=== PATIENT | male | born 1945 | race Caucasian/White ===

== ENCOUNTER → 2017-08-06 | Outpatient (CLI) | payer OTHER | LOC: FIMAGING 10:04 | PROVIDERS: ATTEND Physician Assistant | DX: M53.2X7 Spinal instabilities, lumbosacral region (principal) ==

== ENCOUNTER → 2017-09-14 | Outpatient (CLI) | payer OTHER | LOC: FIMAGING 16:38 | PROVIDERS: ATTEND Internal Medicine | DX: M79.9 Soft tissue disorder, unspecified (principal); S92.514D Nondisplaced fracture of proximal phalanx of right lesser toe(s), subsequent encounter for fracture with routine healing; S92.354D Nondisplaced fracture of fifth metatarsal bone, right foot, subsequent encounter for fracture with routine healing ==

== ENCOUNTER → 2018-03-10 | Outpatient (CLI) | payer OTHER | LOC: BHFA 13:30 | PROVIDERS: ATTEND Internal Medicine Cardiovascular Disease | DX: R07.9 Chest pain, unspecified (principal) | CPT/HCPCS: 78452; 93017; A9500 ==

== ENCOUNTER 2018-03-15 06:36 | Day surgery (SDC) | payer OTHER ==
[2018-03-15] MEDS ORDERED: ASPIRIN EC 325 MG TAB PO ONE (06:37)
[2018-03-15] MEDS ORDERED: NS 1,000 ML IV ONE (06:37)
[2018-03-15] MEDS ORDERED: FAMOTIDINE 20 MG TAB PO ONE (06:37)
[2018-03-15] MEDS ORDERED: diphenhydrAMINE 25 MG CAP PO ONE ×2 (06:37→12:34)
[2018-03-15] MEDS ORDERED: DIAZEPAM 5 MG TAB PO ONE (06:37)
[2018-03-15] MEDS ORDERED: NS 1,000 ML IV SCH (06:45)
[2018-03-15 07:22] LABS: PLATELET COUNT 196 10^3/uL (150-400)
[2018-03-15 07:30] LABS: INR 1.06 (0.83-1.16)
[2018-03-15] MEDS ORDERED: fentaNYL 100 MCG/2 ML INJ ONE (12:26)
[2018-03-15] MEDS ORDERED: LIDOCAINE 1% 300 MG/30 ML SDV ONE (12:26)
[2018-03-15] MEDS ORDERED: MIDAZOLAM 2 MG/2 ML VIAL ONE (12:27)
[2018-03-15] MEDS ORDERED: IOPAMIDOL (ISOVUE-370) 150 ML BTL IV ONE (12:27)
[2018-03-15] MEDS ORDERED: FAMOTIDINE 20 MG TAB ONE (12:34)
[2018-03-15] MEDS ORDERED: DIAZEPAM 5 MG TAB ONE (12:35)
[2018-03-15] MEDS ORDERED: NITROGLYCERIN 0.4 MG BTL SL PRN (13:28)
[2018-03-15] MEDS ORDERED: ATROPINE SULFATE 1 MG/10 ML SYR IVP PRN (13:28)
[2018-03-15] MEDS ORDERED: HYDROCODONE/APAP 5/325 TAB PO PRN (13:28)
[2018-03-15] MEDS ORDERED: ONDANSETRON 4 MG/2 ML VIAL IVP PRN (13:28)
[2018-03-15] MEDS ORDERED: OXYCODONE/APAP 5/325 TAB PO PRN (13:28)
--- NOTE | 2018-03-15 15:33 | PDHPUP ---
History & Physical Update H&P update statement: This history and physical update is based on an assessment of the patient which was completed after admission or registration (within 24 hours), but prior to the surgery/procedure. H&P update: H&P reviewed & patient examined, no change in patient's condition since H&P completed
--- NOTE | 2018-03-15 15:33 | PDPROPOC ---
Sedation Plan of Care Sedation Plan of Care: mental status noted, patient educated of risks, benefits , alternatives, patient can tolerate sedation ASA Classification: ASA 2 Planned drugs: fentanyl, midazolam Mallampati Score: Class 2 Mallampati Reference Image: Patient passed 3-3-2 rule?: Yes
--- NOTE | 2018-03-16 00:47 | CPIP ---
DATE OF PROCEDURE: 03/15/2018 INDICATION FOR PROCEDURE: Angina, positive stress test. PROCEDURE: 1. Nonselective right groin sheathogram. 2. Bilateral selective coronary angiography. 3. Left heart catheterization. 4. Left angiogram. HISTORY: Briefly, this is a 72-year-old male with history of worsening chest pains and symptoms susp icious for underlying coronary disease. Patient underwent stress testing which showed significant ST depressions during exercise as well as inferior defect on stress testing. The patient also had ches t pain during his treadmill testing. Given these findings, the patient consented for left heart cath eterization. 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 DESCRIPTION OF PROCEDURE: After informed consent was obtained, the patient was brought to [facility] cleaning laborer where the patient's right groin was prepped and draped in sterile fashion. U sing lidocaine, a short 6-Palestinian sheath right femoral artery verified angiographically. The 6-Palestinian sheath, a JL4 catheter was advanced to the left coronary artery. Images of the left coronary artery revealed normal left main, small marginal 1 coming off proximally the circumflex artery. There was a much larger marginal 2 artery, which had a tubular 80% to 90% stenosis in its proximal aspect. The re was another area of at least 40% stenosis just distal to this area. There was a marginal 3 artery , which had diffuse 20-30% disease in it. The LAD was a long vessel which wrapped around the apex. The LAD had diffuse 30% disease throughout its course, although distally it appeared to be widely pat ent. There was a small diagonal artery coming off the midbody of the LAD, which had diffuse 20% to 3 0% disease. After images were obtained the JL4 catheter was removed. The JR4 catheter was advanced to the right coronary artery. Images of the right coronary artery revealed normal ostial RCA. The p blanca RCA had what appeared to be 30% disease. This was followed by another longer tubular segment of 50% disease. The distal RP LS had 20% to 30% disease. The RP DA was a thin vessel, but did not have any significant disease. I resumed and obtained the JR4 catheter removed. The pigtail catheter was advanced into the left ventricle. LVEDP is 15 mmHg. Left ventricle in the ZU[place]IGA position showed EF of 65% with no wall motion abnormalities. There was no pull-back gradient between the LV and the aorta . Pigtail catheter was removed over the guidewire. Right groin was closed 6-Palestinian Angio-Seal. The patient tolerated the procedure well with no complications. IMPRESSION: 1. Mild noncritical 30% disease throughout the LAD. 2. 80 to 90% stenosis in the marginal 1 artery which appeared to be a medium to large vessel. 3. 40 to 50% tubular disease in the proximal mid RCA. 4. Normal ejection fraction. At this time, the patient has elected for medical management only. I discussed with the patient in d epth prior to the procedure about potential issues with stenting versus CABG versus medical therapy. He has elected the medical therapy is what he would like to proceed with unless symptoms dictate or prove intractable. We will discharge the patient home this morning with his home medications which i nclude statin, beta diana, and we will add Imdur 30 mg p.o. daily for increasing antianginal therap y. He cannot take aspirin secondary to the aforementioned reasons by micro perforation bleeds. /[id number]/MODL
--- NOTE | 2018-03-16 12:27 | CPEKG ---
Test Reason : OPEN Blood Pressure : / mmHG Vent. Rate : 090 BPM Atrial Rate : 090 BPM P-R Int : 172 ms QRS Dur : 104 ms QT Int : 355 ms P-R-T Axes : 052 000 042 degrees QTc Int : 435 ms Sinus rhythm Probable left atrial enlargement Minimal ST depression, anterolateral leads Confirmed by Gamaliel Olivia ([id number]) on 03/16/2018 12:26:51 PM Referred By: Confirmed By:Gamaliel Olivia
== END 2018-03-15 17:00 | disposition home or self-care (01) ==
LOC: FCATH 06:36
PROVIDERS: ATTEND Internal Medicine Cardiovascular Disease
DX: I25.119 Atherosclerotic heart disease of native coronary artery with unspecified angina pectoris (principal)
CPT/HCPCS: C1760; J1644; J2250; J3010; Q9967

== ENCOUNTER 2018-03-21 14:32 | Emergency (ER) | payer OTHER ==
--- NOTE | 2018-03-21 15:02 | EDPHY ---
General - History Smoking Status: Former smoker Time Seen by Provider: 03/21/18 14:48 Narrative: CHIEF COMPLAINT: arm is black and blue HISTORY OF PRESENT ILLNESS: Patient presents by private vehicle with complaints of left arm turning black and blue with some numbness in it. He states that this happened approximately 1 hr ago. He noticed some prominence of his veins in his left arm with some reported bruising of the mid forearm down to the wrist. He felt "some numbness " in his left forearm that he describes as "like it fell asleep." No trauma or injury. No chest pain or shortness of breath. No lower extremity erythema edema or pain. He does report a right heart catheterization approximately 1 week ago from the right groin approach. IV was in the left forearm. He has no anticoagulation use. No other associated complaints or modifying factors REVIEW OF SYSTEMS: 10 systems were reviewed and negative with the exception of the elements mentioned in the history of present illness. PCP: Dr. Billie Hargrove SPECIALISTS: Cardiology, [facility] Rheumatology, Dr. Medina PAST MEDICAL HISTORY: Coronary artery disease, hypertension, dyslipidemia, psoriatic arthritis, esophageal varices, upper GI bleed, peptic ulcer disease PAST SURGICAL HISTORY: Right heart catheterization 8 days ago, right groin approach SOCIAL HISTORY: Never smoker. Lives independently with his spouse. FAMILY HISTORY: Noncontributory EXAMINATION: Vitals: Triage VS reviewed General Appearance: Alert, no distress. Well appearing. Head: normocephalic, atraumatic Eyes: Pupils equal and round, no conjunctival pallor or injection ENT, Mouth: Mucous membranes moist Neck: Normal inspection, supple, non-tender. No JVD Respiratory: Lungs are clear to auscultation Cardiovascular: Regular rate and rhythm. No murmur. Radial pulses are symmetric at 2+. There is brisk cap refill in all fingers left hand. Good signs of perfusion Neurological: A&O, nonfocal, normal gait. Light sensory symmetric in upper extremities. Excellent industrial technologist strength symmetrically. Skin: Warm and dry, no rash. No erythema of the left upper extremity. Extremities: Nontender, no pedal edema. Minimal left upper extremity nonpitting edema to the forearm. Psychiatric: Mood and affect normal DIFFERENTIAL DIAGNOSES: Including but not limited to DVT, thrombophlebitis, varicosity, arterial occlusion, hematoma MDM: 2:50 p.m. Left upper extremity apparent varicosity versus suspected thrombophlebitis with reports of ecchymosis, mild pain and tingling earlier. Excellent signs of perfusion with no evidence of arterial occlusion. Symptoms are improving since he 1st noticed this. He has no chest pain or shortness of breath. No complaints of lower extremities. His vital signs are within normal limits with tachycardia at time of arrival, within normal rate during my examination. He does not meet SIRS criteria. He is not ill-appearing. I have ordered ultrasound left upper extremity with basic laboratory studies as well. 3:30 p.m. Laboratory studies unremarkable with a chronic elevation of his creatinine that is unchanged. 4:00 p.m. Notified by radiologist Dr. Lee. Ultrasound left upper extremities negative for any evidence of thrombus. Patient re-evaluated. He is asymptomatic at this time aside from a very small area, 1 cm x 1 cm, ecchymosis at the base of the left thumb on the radial side. No pain. No numbness or tingling. He still has excellent signs of perfusion with a 2+ left radial pulse and brisk cap refill in the left hand. No cyanosis or pallor. We discussed discharge home with follow-up with his physicians. He has an appointment tomorrow with his underwater roboticist at 1:30 a.m.. We discussed ED precautions for any return of symptoms, redness, warmth, swelling, pain, chest pain, shortness of breath, numbness or weakness. Both he and his spouse are comfortable this plan. Discharged home stable condition. SUPERVISION: Patient was evaluated and examined in conjunction with my secondary supervising physician as documented. We have both examined the patient. CONSULTATION: None (Michele Infante) Medical Decision Making: PHYSICIAN DOCUMENTATION: The patient was evaluated and managed by the Physician Vocational Evaluator and myself. I have reviewed the chart and agree with the findings and plan of care as documented. In addition, I examined the patient myself at 1615. History confirmed as discoloration of the left arm which is now mostly resolved. Physical findings as follows: Normal left radial pulse and normal motor and sensory in the left hand. He has some prominent superficial veins, but no ecchymosis. Not hot or warm to the touch, compartments are soft. Ultrasound shows no DVT. Does not appear that he has an acute medical or surgical emergent condition in that arm. Think it is safe to let him go home, patient is in agreement. Doubt arterial occlusion or venous occlusion, infection, surgical spinal or nerve root problem. I am the secondary supervising physician. (Lenny eLdesma) - Diagnostics Imaging Results: Imaging Impressions Extremity Venous Study 03/21/18 15:02 Impression: No evidence of vein thrombosis in the left arm. Results called and discussed with Michele CORDOVA on 03/21/2018 at 16:02. - Objective Vital Signs: Initial Vital Signs Temperature (C) 36.7 C 03/21/18 14:36 Heart Rate 107 H 03/21/18 14:36 Respiratory Rate 20 03/21/18 14:36 Blood Pressure 161/96 H 03/21/18 14:36 O2 Sat (%) 94 03/21/18 14:36 O2 Delivery Mode Room Air Allergies/Adverse Reactions: No Allergies [NKDA] Allergy (Verified 03/21/18 14:40) Home Medications: Medication Instructions Recorded Ferrous Sulfate [Ferrous Sulf 325 1 tab PO BID 01/11/13 MG (*)] Leflunomide [Arava 20 mg (*)] 20 mg PO DAILY 01/11/13 Losartan/Hctz 50/12.5 [Hyzaar 1 tab PO DAILY 01/11/13 50/12.5MG (*)] inFLIXimab [Remicade Inj 100 mg 500 mg IV .[id number] 01/11/13 (*)] Acetaminophen [Tylenol 325mg (*)] 325 mg PO DAILY PRN 03/15/18 Folic Acid [Folic Acid 1 MG (*)] 2.4 mg PO DAILY 03/15/18 Insulin Detemir [Levemir] 40 - 50 unit SQ HS 03/15/18 Isosorbide Mononitrate [Imdur 30 30 mg PO DAILY #30 tab.sr 03/15/18 mg (*)] Loperamide HCl [Imodium 2 mg (*)] 2 mg PO PRN PRN 03/15/18 Metoprolol Succinate Xr [Toprol Xl 25 mg PO DAILY 03/15/18 25 mg (*)] Multivitamins [Multivitamin (*)] 1 each PO DAILY 03/15/18 Simvastatin [Zocor] 40 mg PO HS 03/15/18 metFORMIN HCL [Glucophage 1000 mg] 1,000 mg PO BIDMEAL 03/15/18 Laboratory Results: Laboratory Results 03/21/18 11:51 03/21/18 11:51 03/21/1818 03/21/18 11:51 11:51 11:51 WBC 10.99 10^3/uL H 10^3/uL (3.80-9.50) RBC 5.15 10^6/uL 10^6/uL (4.40-6.38) Hgb 14.1 g/dL g/dL (13.7-17.5) Hct 42.6 % % (40.0-51.0) MCV 82.7 fL fL (81.5-99.8) MCH 27.4 pg L pg (27.9-34.1) MCHC 33.1 g/dL g/dL (32.4-36.7) RDW 13.6 % % (11.5-15.2) Plt Count 227 10^3/uL 10^3/uL (150-400) MPV 10.1 fL fL (8.7-11.7) Neut % (Auto) 46.8 % % (39.3-74.2) Lymph % (Auto) 30.7 % % (15.0-45.0) Frederick % (Auto) 8.9 % % (4.5-13.0) Eos % (Auto) 11.8 % H % (0.6-7.6) Baso % (Auto) 1.5 % % (0.3-1.7) Nucleat RBC Rel Count 0.0 % % (0.0-0.2) Absolute Neuts (auto) 5.14 10^3/uL 10^3/uL (1.70-6.50) Absolute Lymphs (auto) 3.37 10^3/uL H 10^3/uL (1.00-3.00) Absolute Monos (auto) 0.98 10^3/uL H 10^3/uL (0.30-0.80) Absolute Eos (auto) 1.30 10^3/uL H 10^3/uL (0.03-0.40) Absolute Basos (auto) 0.17 10^3/uL H 10^3/uL (0.02-0.10) Absolute Nucleated RBC 0.00 10^3/uL 10^3/uL (0-0.01) Immature Gran % 0.3 % % (0.0-1.1) Immature Gran # 0.03 10^3/uL 10^3/uL (0.00-0.10) PT 14.1 SEC SEC (12.0-15.0) INR 1.07 (0.83-1.16) APTT 29.4 SEC SEC (23.0-38.0) Sodium 138 mEq/L mEq/L (135-145) Potassium 4.0 mEq/L mEq/L (3.3-5.0) Chloride 106 mEq/L mEq/L (97-110) Carbon Dioxide 23 mEq/l mEq/l (22-31) Anion Gap 9 mEq/L mEq/L (6-14) BUN 27 mg/dL H mg/dL (7-23) Creatinine 1.4 mg/dL H mg/dL (0.7-1.3) Estimated GFR 50 Glucose 123 mg/dL H mg/dL (70-100) Calcium 10.2 mg/dL mg/dL (8.5-10.4) Departure - Departure Disposition: Home, Routine, Self-Care Clinical Impression: Paresthesia Upper limb pain, anterior Qualifiers: Laterality: left Qualified Code(s): M79.602 - Pain in left arm Condition: Good Instructions: Paresthesia (ED) Additional Instructions: 1. Keep your appointment with underwater roboticist tomorrow afternoon. 2. Return here for any return of your symptoms or for any chest pain, cyanosis, pallor, redness, warmth, pain, numbness or weakness Referrals: Billie Hargrove MD [Primary Care Provider] - As per Instructions Feliciano Esqueda MD [Medical Doctor] - As per Instructions
[2018-03-21 15:27] LABS: PLATELET COUNT 227 10^3/uL (150-400)
[2018-03-21 15:30] LABS: INR 1.07 (0.83-1.16); PROTIME(PATIENT) 14.1 SEC (12.0-15.0)
[2018-03-21 16:38] VITALS: BP 125/78
== END 2018-03-21 16:38 | disposition home or self-care (01) ==
DX: R20.2 Paresthesia of skin (principal); M79.602 Pain in left arm; I10 Essential (primary) hypertension; E78.5 Hyperlipidemia, unspecified; I25.10 Atherosclerotic heart disease of native coronary artery without angina pectoris; Z87.891 Personal history of nicotine dependence